=== PATIENT | female | born 1945 | race Caucasian/White ===

== ENCOUNTER 2018-06-30 09:18 | Emergency (ER) | payer OTHER ==
[~2018-06-30] VITALS: Ht 160 cm; Wt 61.2 kg
[~2018-06-30 09:18] MED LIST: ADULT LOW DOSE81 MG; CARVEDILOL12.5 MG PO; CIPRO500 MG PO; DARVOCET-N 1001 EAC1; KLOR-CON 10 ER10 MEQ PO; LASIX 40 MG TAB40 MG OR; LIPITOR 20 MG T20 M1 PO; LOPRESSOR PO; NOHOMEMEDICATIONS; PACERONE 200 M200 M1; PERCOCET 5-3251 EACH; ZOCOR 20 MG TAB20 M1
[2018-06-30 10:30] LABS: HEMATOCRIT 40.6 % (37.0-47.0); HEMOGLOBIN 13.5 gm/dL (12.0-15.0); MCH 30.5 pg (26.0-34.0); MCHC 33.4 g/dL (28.0-37.0); MCV 91.3 fL (80.0-100.0); MPV 7.6 fl. (7.2-11.1); NUCLEATED RBCS 0 /100WBC; PLATELET COUNT* 219 thou/uL (150-400); RBC 4.45 mil/uL (4.20-5.00)
[2018-06-30 10:36] LABS: ANION GAP 8 mmol/L (7-16); BUN 13 mg/dL (7-18); CALCIUM 8.8 mg/dL (8.5-10.1); CHLORIDE 104 mmol/L (98-107); CO2 29 mmol/L (21-32); GLUCOSE 121 mg/dL (70-99); SODIUM 141 mmol/L (136-145)
[2018-06-30 10:37] LABS: HCO3 24.6 mmol/L (22.0-26.0); PCO2 36.1 mmHg (35.0-45.0); PO2 87.4 mmHg (75.0-100.0); pH 7.451 (7.340-7.450)
[2018-06-30 10:43] LABS: ALBUMIN 3.6 g/dL (3.4-5.0); ALKALINE PHOSPHATASE 86 U/L (46-116); MAGNESIUM 2.3 mg/dL (1.8-2.4); SGOT 14 U/L (15-37); SGPT 16 U/L (30-65); TOTAL BILIRUBIN 0.6 mg/dL (<0.1-1.0); TOTAL PROTEIN 7.6 g/dL (6.4-8.2); TROPONIN-I LEVEL <0.06 ng/mL (<0.06)
[2018-06-30 10:49] LABS: URINE BILIRUBIN NEGATIVE (Negative); URINE BLOOD 3+ (Negative); URINE CLARITY CLEAR; URINE COLOR YELLOW; URINE GLUCOSE-RANDOM NEGATIVE (Negative); URINE KETONES NEGATIVE (Negative); URINE PROTEIN 1+ (Negative); URINE UROBILINOGEN 0.2 E.U./dl (0.2-1.0)
[2018-06-30 10:52] LABS: URINE LEUKOCYTES-REFLEX 3+ (Negative); URINE NITRITE-REFLEX POSITIVE (Negative)
[2018-06-30 11:08] LABS: ABSOLUTE LYMPHOCYTES 1.3 thou/uL (0.8-5.3); ABSOLUTE MONOCYTES 0.1 thou/uL (0.0-1.2); ABSOLUTE NEUTROPHILS 10.6 thou/uL (1.6-8.1); PLATELET ESTIMATE ADEQUATE
[2018-06-30] MEDS ORDERED: CIPROFLOXACIN500 M1 PO ×2 (11:18→11:48)
[2018-06-30 11:33] LABS: CASTS None Seen /LPF (None Seen); CRYSTALS None Seen /LPF (None Seen); MUCUS 0-3 Light strn/LPF (None Seen); SQUAMOUS 0-3 Few /LPF (0-3); URINE RBC 3-10 Few /HPF (0-2); URINE WBC-REFLEX >25 Many /HPF (0-5)
[2018-06-30 12:20] VITALS: BP 154/81
--- NOTE | 2018-06-30 16:23 | EKG ---
[place] [address] ELECTROCARDIOGRAM REPORT Name: YUE FELIX [id number] Admission: 06/30/18 Attend Phys: Discharge: 06/30/18 Date of : 43 Report #: [id number] THIS REPORT FOR: //name// [facility] ED Test Date: 2018-06-30 Test Time: 10:17:47 Pat Name: YUE FELIX Department: Room: Gender: F [employer]electric Mechanic: Tyron SANTANA : 1945 Requested By: Irene Jones Order Number: [id number] MD: Bandar Dennis Measurements Intervals [place] Rate: 86 P: 48 [place]: 147 QRS: 75 QRSD: 143 T: 86 QT: 426 QTc: 510 Interpretive Statements Sinus rhythm Right bundle branch block Compared to ECG 02/02/2016 22:12:04 No significant changes Electronically Signed On 06-30-2018 16:23:45 CDT by Bandar Dennis [email or web address] <ELECTRONICALLY SIGNED> By: Bandar Dennis MD, [facility] 06/30/18 1623 [id number] [id number] Bandar Dennis MD, FACC /EPI
== END 2018-06-30 12:21 | disposition home or self-care (01) ==
LOC: M.ERS 09:18
PROVIDERS: Personal Emergency Response Attendant
DX: N39.0 Urinary tract infection, site not specified (principal); R51 Headache; I10 Essential (primary) hypertension; E78.00 Pure hypercholesterolemia, unspecified; I25.2 Old myocardial infarction

== ENCOUNTER → 2018-10-15 | Outpatient (CLI) | payer OTHER ==
[~2018-10-15] MED LIST changes: +CIPROFLOXACIN500 M1 PO
[2018-10-15 11:05] LABS: CHOLESTEROL 211 mg/dL (<200); HDL CHOLESTEROL 54 mg/dL (>40); LDL CHOLESTEROL 129 mg/dL (<100); SERUM ASSESSMENT Clear; TC:HDL 3.9 Ratio (Not establshd); TRIGLYCERIDE 142 mg/dL (<150); VLDL 28 mg/dL (<40)
== END ==
LOC: M.LAB 10:36
PROVIDERS: Internal Medicine Cardiovascular Disease
DX: E78.2 Mixed hyperlipidemia (principal)

== ENCOUNTER → 2018-10-27 | Outpatient (CLI) | payer OTHER ==
--- NOTE | 2018-10-27 13:09 | 2DMMODE ---
[place] [address] 2 D/M-MODE ECHOCARDIOGRAM Name: YUE FELIX Room: [facility]#: [id number] Admission: 10/27/18 Attend Phys: Papo Baltazar, Discharge: Date of : 43 Date of Service: 10/27/18 1309 Report #: [id number] THIS REPORT FOR: //name// APPROVED REPORT Study performed: 10/27/2018 10:04:12 EXAM: Comprehensive 2D, Doppler, and color-flow Echocardiogram Patient Location: Out-Patient Status: routine BSA: 1.66 HR: 75 bpm BP: 150/88 mmHg Other Information Study Quality: Good Indications CAD 2D Dimensions IVSd: 11.51 (7-11mm) LVOT Diam: 19.94 (18-24mm) LVDd: 50.80 mm PWd: 8.25 (7-11mm) Ascending Ao: 31.94 (22-36mm) LVDs: 40.16 (25-40mm) Aortic Root: 23.14 mm Volumes Left Atrial Volume (Systole) LA ESV Index: 16.10 mL/m2 Aortic Valve AoV Peak Waqas.: 1.03 m/s AO Peak Gr.: 4.27 mmHg LVOT Max P.95 mmHg AO Mean Gr.: 2.56 mmHg LVOT Mean P.42 mmHg LVOT Max V: 0.86 m/s AO V2 VTI: 23.31 cm LVOT Mean V: 0.55 m/s EDWARD (VTI): 2.57 cm2 LVOT V1 VTI: 19.21 cm Mitral Valve E/A Ratio: 0.85 MV Decel. Time: 155.40 ms MV E Max Waqas.: 0.68 m/s MV PHT: 45.06 [place] [address] 2 D/M-MODE ECHOCARDIOGRAM Name: YUE FELIX Room: [facility]#: [id number] Admission: 10/27/18 Attend Phys: Papo Baltazar, Discharge: Date of : 43 Date of Service: 10/27/18 1309 Report #: [id number] MVA (PHT): 4.88 cm2 TDI E/Lateral E': 7.56 E/Medial E': 8.50 Medial E' Waqas.: 0.08 m/s Lateral E' Waqas.: 0.09 m/s Pulmonary Valve PV Peak Waqas.: 0.77 m/s PV Peak Gr.: 2.39 mmHg Left Ventricle The left ventricle is normal size. There is abnormal segmental wall motion with inferobasilar hypokinesis. There is normal left ventricular wall thickness. Left ventricular systolic function is moderately decreased. LVEF is 40%. Grade I - abnormal relaxation pattern. Right Ventricle The right ventricle is normal size. The right ventricular systolic function is normal. Atria The left atrium size is normal. The right atrium size is normal. Aortic Valve Mild aortic valve sclerosis. No aortic regurgitation is present. There is no aortic valvular stenosis. Mitral Valve The mitral valve is normal in structure. Mild mitral regurgitation. No evidence of mitral valve stenosis. Tricuspid Valve The tricuspid valve is normal in structure. There is no tricuspid valve regurgitation noted. Pulmonic Valve The pulmonary valve is normal in structure. There is no pulmonic valvular regurgitation. Great Vessels The aortic root is normal in size. IVC is normal in size and collapses >50% with [place] [address] 2 D/M-MODE ECHOCARDIOGRAM Name: YUE FELIX Room: [facility] Flavio#: [id number] Admission: 10/27/18 Attend Phys: Papo Baltazar, Discharge: Date of : 43 Date of Service: 10/27/18 1309 Report #: [id number] There is no pericardial effusion. <Conclusion> The left ventricle is normal size. There is normal left ventricular wall thickness. Left ventricular systolic function is moderately decreased. LVEF is 40%. Grade I - abnormal relaxation pattern. The right ventricle is normal size. The left atrium size is normal. Mild aortic valve sclerosis. No aortic regurgitation is present. There is no aortic valvular stenosis. The mitral valve is normal in structure. Mild mitral regurgitation. The tricuspid valve is normal in structure. IVC is normal in size and collapses >50% with inspiration. There is no pericardial effusion. There is abnormal segmental wall motion with inferobasilar hypokinesis. <ELECTRONICALLY SIGNED> By: Girish Brown MD, [facility] 10/27/18 1309 1309 Girish Brown MD, FACC /INF
== END ==
LOC: M.CRD 09:40
DX: I34.0 Nonrheumatic mitral (valve) insufficiency (principal); I25.10 Atherosclerotic heart disease of native coronary artery without angina pectoris; I35.8 Other nonrheumatic aortic valve disorders

== ENCOUNTER → 2019-04-15 | Outpatient (CLI) | payer OTHER ==
[2019-04-15 11:04] LABS: CHOLESTEROL 120 mg/dL (<200); HDL CHOLESTEROL 49 mg/dL (>40); LDL CHOLESTEROL 53 mg/dL (<100); TC:HDL 2.4 Ratio (Not establshd); TRIGLYCERIDE 94 mg/dL (<150); VLDL 19 mg/dL (<40)
[2019-04-15 11:05] LABS: SERUM ASSESSMENT Clear
== END ==
LOC: M.LAB 10:06
PROVIDERS: Internal Medicine Cardiovascular Disease
DX: E78.2 Mixed hyperlipidemia (principal)

== ENCOUNTER → 2020-05-31 | Outpatient (CLI) | payer MEDICARE ==
[2020-05-31 09:54] LABS: ABSOLUTE BASOPHILS 0.1 thou/uL (0.0-0.2); ABSOLUTE EOSINOPHILS 0.1 thou/uL (0.0-0.7); ABSOLUTE LYMPHOCYTES 1.2 thou/uL (0.8-5.3); ABSOLUTE MONOCYTES 0.4 thou/uL (0.0-1.2); ABSOLUTE NEUTROPHILS 3.4 thou/uL (1.6-8.1); BASOPHILS 1.4 %; HEMATOCRIT 32.9 % (37.0-47.0); HEMOGLOBIN 11.6 gm/dL (12.0-15.0); LYMPHOCYTES 23.4 %; MCH 32.2 pg (26.0-34.0); MCHC 35.4 g/dL (28.0-37.0); MCV 91.1 fL (80.0-100.0); MONOCYTES 7.3 %; NUCLEATED RBCS 0 /100WBC; PLATELET COUNT* 216 thou/uL (150-400); POLYS 65.9 %; RBC 3.61 mil/uL (4.20-5.00); RDW-CV 12.5 % (10.5-14.5); WBC 5.2 thou/uL (4.0-11.0)
[2020-05-31 10:32] LABS: ALBUMIN 3.7 g/dL (3.4-5.0); ALKALINE PHOSPHATASE 95 U/L (46-116); ANION GAP 6 mmol/L (7-16); BUN 10 mg/dL (7-18); CALCIUM 8.4 mg/dL (8.5-10.1); CHLORIDE 102 mmol/L (98-107); CO2 29 mmol/L (21-32); GLUCOSE 103 mg/dL (70-99); POTASSIUM 4.3 mmol/L (3.5-5.1); SGOT 30 U/L (15-37); SGPT 26 U/L (30-65); SODIUM 137 mmol/L (136-145); TOTAL BILIRUBIN 0.5 mg/dL (<0.1-1.0); TOTAL PROTEIN 7.3 g/dL (6.4-8.2)
[2020-05-31 10:34] LABS: SERUM ASSESSMENT Clear
[2020-05-31 10:46] LABS: CHOLESTEROL 86 mg/dL (<200); HDL CHOLESTEROL 41 mg/dL (>40); LDL CHOLESTEROL 27 mg/dL (<100); TC:HDL 2.1 Ratio (Not establshd); TRIGLYCERIDE 91 mg/dL (<150); VLDL 18 mg/dL (<40)
== END ==
LOC: M.LAB 09:39
PROVIDERS: ATTEND Nurse Practitioner
DX: Z13.29 Encounter for screening for other suspected endocrine disorder (principal); I10 Essential (primary) hypertension; E78.2 Mixed hyperlipidemia; I25.10 Atherosclerotic heart disease of native coronary artery without angina pectoris

== ENCOUNTER → 2020-06-11 | Outpatient (CLI) | payer MEDICARE ==
--- NOTE | 2020-06-11 15:25 | 2DMMODE ---
[place] [address] 2 D/M-MODE ECHOCARDIOGRAM Name: YUE FELIX Room: [facility]#: [id number] Admission: 06/11/20 Attend Phys: Papo Baltazar, Discharge: Date of : 43 Date of Service: 06/11/20 1525 Report #: [id number] THIS REPORT FOR: cc: FAM - No family physician/PCP FAM - No family physician/PCP Bandar Dennis MD [facility] ~ APPROVED REPORT Study performed: 06/11/2020 12:32:15 EXAM: Comprehensive 2D, Doppler, and color-flow Echocardiogram Patient Location: Out-Patient BSA: 1.65 HR: 67 bpm BP: 127/62 mmHg Other Information Study Quality: Good Indications Cardiomyopathy 2D Dimensions IVSd: 10.14 (7-11mm) LVOT Diam: 20.48 (18-24mm) LVDd: 44.72 mm PWd: 9.07 (7-11mm) Ascending Ao: 33.04 (22-36mm) LVDs: 33.58 (25-40mm) Aortic Root: 22.48 mm Volumes Left Atrial Volume (Systole) LA ESV Index: 14.00 mL/m2 Aortic Valve AoV Peak Waqas.: 0.97 m/s AO Peak Gr.: 3.78 mmHg LVOT Max P.59 mmHg AO Mean Gr.: 2.39 mmHg LVOT Mean P.85 mmHg LVOT Max V: 0.63 m/s AO V2 VTI: 24.72 cm LVOT Mean V: 0.43 m/s EDWARD (VTI): 2.14 cm2 LVOT V1 VTI: 16.06 cm Mitral Valve E/A Ratio: 0.78 [place] [address] 2 D/M-MODE ECHOCARDIOGRAM Name: YUE FELIX Room: [facility]#: [id number] Admission: 06/11/20 Attend Phys: Papo Baltazar, Discharge: Date of : 43 Date of Service: 06/11/20 1525 Report #: [id number] MV Decel. Time: 190.62 ms MV E Max Waqas.: 0.67 m/s MV PHT: 55.28 ms MVA (PHT): 3.98 cm2 TDI E/Lateral E': 9.57 E/Medial E': 7.44 Medial E' Waqas.: 0.09 m/s Lateral E' Waqas.: 0.07 m/s Pulmonary Valve PV Peak Waqas.: 0.79 m/s PV Peak Gr.: 2.52 mmHg Tricuspid Valve RAP Estimate: 5.00 mmHg TR Peak Gr.: 14.73 mmHg RVSP: 19.73 mmHg PA Pressure: 19.73 mmHg Left Ventricle The left ventricle is normal size. There is global hypokinesis of the left ventricle. There is normal left ventricular wall thickness. Left ventricular systolic function is mild to moderately decreased. LVEF is 30-35%. Grade I - abnormal relaxation pattern. Right Ventricle The right ventricle is normal size. The right ventricular systolic function is normal. Atria The left atrium size is normal. The right atrium size is normal. Aortic Valve The aortic valve is normal in structure. No aortic regurgitation is present. There is no aortic valvular stenosis. Mitral Valve The mitral valve is normal in structure. Mild mitral regurgitation. No evidence of mitral valve stenosis. Tricuspid Valve The tricuspid valve is normal in structure. Mild tricuspid regurgitation. Pulmonic Valve The pulmonary valve is normal in structure[place] [address] 2 D/M-MODE ECHOCARDIOGRAM Name: YUE FELIX Room: [facility]#: [id number] Admission: 06/11/20 Attend Phys: Papo Baltazar, Discharge: Date of : 43 Date of Service: 06/11/20 1525 Report #: [id number] regurgitation. Great Vessels The aortic root is normal in size. IVC is normal in size and collapses >50% with inspiration. Pericardium There is no pericardial effusion. <Conclusion> LVEF is 30-35%. There is global hypokinesis of the left ventricle. <ELECTRONICALLY SIGNED> By: Bandar Dennis MD, [facility] 06/11/20 1525 1525 1525 Bandar Dennis MD, [facility] /INF
== END ==
LOC: M.CRD 12:36
PROVIDERS: ATTEND Internal Medicine Cardiovascular Disease
DX: I08.8 Other rheumatic multiple valve diseases (principal)

== ENCOUNTER → 2020-11-13 | Outpatient (CLI) | payer MEDICARE ==
--- NOTE | 2020-11-13 16:41 | 2DMMODE ---
[place] [address] 2 D/M-MODE ECHOCARDIOGRAM Name: YUE FELIX Room: [facility]#: [id number] Admission: 11/13/20 Attend Phys: Papo Baltazar, Discharge: Date of : 43 Date of Service: 11/13/20 1640 Report #: [id number] THIS REPORT FOR: cc: MAHESH - No family physician/PCP MAHESH - No family physician/PCP Girish Brown MD [facility] ~ APPROVED REPORT Study performed: 11/13/2020 11:09:11 EXAM: Comprehensive 2D, Doppler, and color-flow Echocardiogram Patient Location: Out-Patient BSA: 1.67 HR: 77 bpm BP: 112/74 mmHg Other Information Study Quality: Fair Indications Cardiomyopathy 2D Dimensions IVSd: 9.62 (7-11mm) LVOT Diam: 20.01 (18-24mm) LVDd: 44.96 mm PWd: 10.06 (7-11mm) Ascending Ao: 31.51 (22-36mm) LVDs: 36.61 (25-40mm) Aortic Root: 33.19 mm Volumes Left Atrial Volume (Systole) LA ESV Index: 20.40 mL/m2 Aortic Valve AoV Peak Waqas.: 0.79 m/s AO Peak Gr.: 2.52 mmHg LVOT Max P.87 mmHg AO Mean Gr.: 1.56 mmHg LVOT Mean P.45 mmHg LVOT Max V: 0.85 m/s AO V2 VTI: 20.44 cm LVOT Mean V: 0.56 m/s EDWARD (VTI): 2.91 cm2 LVOT V1 VTI: 18.89 cm Mitral Valve E/A Ratio: 0.79 [place] [address] 2 D/M-MODE ECHOCARDIOGRAM Name: YUE FELIX Room: [facility]#: [id number] Admission: 11/13/20 Attend Phys: Papo Baltazar, Discharge: Date of : 43 Date of Service: 11/13/20 [facility] Report #: [id number] MV Decel. Time: 174.04 ms MV E Max Waqas.: 0.64 m/s MV PHT: 50.47 ms MVA (PHT): 4.36 cm2 TDI E/Lateral E': 8.00 E/Medial E': 8.00 Medial E' Waqas.: 0.08 m/s Lateral E' Waqas.: 0.08 m/s Pulmonary Valve PV Peak Waqas.: 0.82 m/s PV Peak Gr.: 2.68 mmHg Left Ventricle The left ventricle is normal size. There is normal LV segmental wall motion. There is normal left ventricular wall thickness. Left ventricular systolic function is moderately decreased. LVEF is 35-40%. Grade I - abnormal relaxation pattern. Right Ventricle The right ventricle is normal size. The right ventricular systolic function is normal. Atria The left atrium size is normal. The right atrium size is normal. Aortic Valve Mild aortic valve sclerosis. No aortic regurgitation is present. There is no aortic valvular stenosis. Mitral Valve The mitral valve is normal in structure. Mild mitral regurgitation. No evidence of mitral valve stenosis. Tricuspid Valve The tricuspid valve is normal in structure. There is no tricuspid valve regurgitation noted. Pulmonic Valve The pulmonary valve is normal in structure. There is no pulmonic valvular regurgitation. Great Vessels The aortic root is normal in size. IVC is normal in size and collapses >50% [place] [address] 2 D/M-MODE ECHOCARDIOGRAM Name: YUE FELIX Room: [facility]#: [id number] Admission: 11/13/20 Attend Phys: Papo Baltazar, Discharge: Date of : 43 Date of Service: 11/13/20 [facility] Report #: [id number] Pericardium There is no pericardial effusion. <Conclusion> The left ventricle is normal size. There is normal left ventricular wall thickness. Left ventricular systolic function is moderately decreased. LVEF is 35-40%. Grade I - abnormal relaxation pattern. The right ventricle is normal size. The left atrium size is normal. Mild aortic valve sclerosis. No aortic regurgitation is present. There is no aortic valvular stenosis. The mitral valve is normal in structure. Mild mitral regurgitation. The tricuspid valve is normal in structure. IVC is normal in size and collapses >50% with inspiration. There is no pericardial effusion. There is normal LV segmental wall motion. <ELECTRONICALLY SIGNED> By: Girish Brown MD, FACC 11/13/20 1640 1640 1640 Girish Brown MD, FACC /INF
== END ==
LOC: M.NUC 06-13 10:03 → M.CRD 07-19 13:00
PROVIDERS: ATTEND Internal Medicine Cardiovascular Disease
DX: I08.0 Rheumatic disorders of both mitral and aortic valves (principal); I25.10 Atherosclerotic heart disease of native coronary artery without angina pectoris